=== PATIENT | male | born 1950 | race Caucasian/White ===

== ENCOUNTER → 2022-07-06 | Outpatient (CLI) | payer MEDICARE, OTHER | END | disposition home or self-care (01) | LOC: RESCLI 13:47 | PROVIDERS: ATTEND Internal Medicine | DX: Z23 Encounter for immunization (principal); I35.8 Other nonrheumatic aortic valve disorders; E78.2 Mixed hyperlipidemia; J45.20 Mild intermittent asthma, uncomplicated; E55.9 Vitamin D deficiency, unspecified; N52.9 Male erectile dysfunction, unspecified; Z79.899 Other long term (current) drug therapy ==

== ENCOUNTER → 2023-07-06 | Outpatient (CLI) | payer MEDICARE | LOC: RESCLI 00:42 | PROVIDERS: ATTEND Emergency Medicine | DX: I10 Essential (primary) hypertension (principal); E78.2 Mixed hyperlipidemia; J45.20 Mild intermittent asthma, uncomplicated; E55.9 Vitamin D deficiency, unspecified; N52.9 Male erectile dysfunction, unspecified; R41.3 Other amnesia; I35.8 Other nonrheumatic aortic valve disorders; Z82.49 Family history of ischemic heart disease and other diseases of the circulatory system; Z82.3 Family history of stroke; Z79.899 Other long term (current) drug therapy ==